=== PATIENT | female | born 2000 | race African-American/Black ===

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

== ENCOUNTER 2021-01-18 12:22 | Emergency (ER) | payer OTHER ==
[~2021-01-18] VITALS: Ht 185.4 cm; Wt 78.8 kg
[2021-01-18] MEDS ORDERED: HYDR-3363 PO (12:35)
[2021-01-18] MEDS ORDERED: NAPR-849 PO (12:35)
[2021-01-18 13:23] LABS: APPEARANCE, URINE CLEAR (CLEAR); BACTERIA, URINE AUTO NEGATIVE (NEGATIVE); BILIRUBIN, URINE AUTO NEGATIVE (NEGATIVE); BLOOD, URINE BLOOD NEGATIVE (NEGATIVE); COLOR, URINE YELLOW (YELLOW); GLUCOSE, URINE (UA) AUTO NEGATIVE (NEGATIVE); KETONE, URINE AUTO NEGATIVE (NEGATIVE); LEUKOCYTE ESTERASE, URINE AUTO NEGATIVE (NEGATIVE); NITRITE, URINE AUTO NEGATIVE (NEGATIVE); PROTEIN, URINE AUTO NEGATIVE (NEGATIVE); RBC, URINE AUTO 0 /HPF (0-3); SPECIFIC GRAVITY URINE AUTO 1.015 (1.002-1.035); SQUAMOUS EPITHELIAL CELL UR AU 0 /HPF (0-6); UROBILINOGEN, URINE AUTO 0.2 mg/dL (0.0-2.0); WBC, URINE AUTO 1 /HPF (0-3)
--- NOTE | 2021-01-18 13:29 | REP ---
INDICATION: R wrist pain s/p fall COMPARISON: None. TECHNIQUE: AP, lateral, bilateral oblique views right wrist. FINDINGS: The carpal bones, surrounding osseous structures, soft tissues, and joint spaces are normal. There is no evidence for acute fracture or dislocation. No subcutaneous emphysema or radiodense foreign body. IMPRESSION: No definite acute fracture or dislocation. If the patient remains symptomatic consider re-evaluation in 3-5 days including scaphoid view if necessary. <Electronically signed by Ruddy Novak > 01/18/21 [id number]
[2021-01-18 13:36] LABS: BASO # 0.1 10^3/uL (0.0-0.2); BASO % 1.3 % (0.0-1.0); EOS # 0.2 10^3/uL (0.0-0.5); EOS % 3.9 % (0.0-3.0); HEMATOCRIT 41.4 % (36.0-47.0); HEMOGLOBIN 13.5 g/dl (12.0-15.5); LYMPH # 2.3 10^3/uL (1.5-5.0); LYMPH % 37.2 % (24.0-44.0); MEAN CORPUSCULAR HEMOGLOBIN 24.3 pg (27.0-33.0); MEAN CORPUSCULAR HGB CONC 32.6 g/dl (32.0-36.5); MEAN CORPUSCULAR VOLUME 74.5 fl (80.0-96.0); MONO # 0.6 10^3/uL (0.0-0.8); MONO % 9.1 % (2.0-8.0); NEUTROPHILS % 48.3 % (36.0-66.0); PLATELET COUNT, AUTOMATED 433 10^3/uL (150-450); RED BLOOD COUNT 5.56 10^6/uL (4.00-5.40); WHITE BLOOD COUNT 6.1 10^3/uL (4.0-10.0)
[2021-01-18 14:17] LABS: BLOOD UREA NITROGEN 9 MG/DL (7-18); CALCIUM LEVEL 9.3 MG/DL (8.5-10.1); CARBON DIOXIDE LEVEL 29 MEQ/L (21-32); CHLORIDE LEVEL 106 MEQ/L (98-107); CK-MB VALUE MASS < 1.0 NG/ML (<3.6); CPK CREATINE PHOSPHOKINASE 224 U/L (26-192); CREATININE FOR GFR 0.78 MG/DL (0.55-1.30); GLUCOSE, FASTING 78 MG/DL (70-100); MB/CK RELATIVE INDEX 0.45 (< OR =4); POTASSIUM SERUM 5.2 MEQ/L (3.5-5.1); SODIUM LEVEL 138 MEQ/L (136-145); TROPONIN I < 0.02 NG/ML (< 0.10)
[2021-01-18 15:53] VITALS: BP 121/71
[2021-01-20 14:09] LABS: Lyme Disease IgG/IgM Antibodie <0.91 ISR (0.00-0.90); Lyme Disease IgM Ab Quantitati <0.80 index (0.00-0.79)
== END 2021-01-18 15:55 | disposition home or self-care (01) ==
LOC: M ED 12:22
DX: S63.8X1A Sprain of other part of right wrist and hand, initial encounter (principal); M54.5 Low back pain; M25.552 Pain in left hip; X58.XXXA Exposure to other specified factors, initial encounter; Y92.9 Unspecified place or not applicable; Y93.9 Activity, unspecified; Y99.9 Unspecified external cause status

== ENCOUNTER → 2021-06-11 | Outpatient (REF) ==
[~2021-06-11] MED LIST changes: +HYDR-3363 PO; -ISOVUE-300 61% 50ML VIAL As Ordered ONE; +NAPR-849 PO; -PROHANCE 279.3MG/ML 5ML VIAL As Ordered ONE
--- NOTE | 2021-06-11 12:05 | REP ---
INDICATION: SOB,BACK PAIN. COMPARISON: None. FINDINGS: The superior mediastinal structures are midline. The cardiac silhouette is unremarkable in size, shape, and position. The diaphragmatic surfaces of the lungs are regular, and the costophrenic angles are clear. The pulmonary barber are clear. The imaged osseous structures are intact. IMPRESSION: There is no acute cardiopulmonary disease. <Electronically signed by Edd Duran > 06/11/21 [id number]
--- NOTE | 2021-06-11 12:16 | REP ---
INDICATION: SOB,BACK PAIN. COMPARISON: None TECHNIQUE: Three views FINDINGS: AP and lateral views shows vertebral body height and alignment to be within normal limits. The disc spaces are symmetric and well maintained throughout. The pedicles are intact bilaterally. IMPRESSION: Within normal limits <Electronically signed by Edd Duran > 06/11/21 [id number]
== END ==
LOC: M PLALAB 11:05 → M PLAIMG 11:05
PROVIDERS: ATTEND Internal Medicine
DX: R06.02 Shortness of breath (principal); M54.9 Dorsalgia, unspecified

== ENCOUNTER → 2021-07-02 | Outpatient (CLI) | payer OTHER ==
--- NOTE | 2021-07-02 14:16 | REP ---
INDICATION: PAIN S/P FALL COMPARISON: None. TECHNIQUE: AP, lateral, bilateral oblique views right hand. FINDINGS: The osseous structures and joint spaces are intact and normal. There is no evidence for acute fracture or dislocation. Surrounding soft tissues are unremarkable. No subcutaneous emphysema or radiodense foreign body. IMPRESSION: . No acute fracture or dislocation. <Electronically signed by Ruddy Novak > 07/02/21 [id number]
--- NOTE | 2021-07-02 14:19 | REP ---
INDICATION: PAIN S/P FALL COMPARISON: None. TECHNIQUE: AP, lateral, bilateral oblique views right wrist. FINDINGS: The carpal bones, surrounding osseous structures, soft tissues, and joint spaces are normal. There is no evidence for acute fracture or dislocation. No subcutaneous emphysema or radiodense foreign body. IMPRESSION: Normal wrist series. No acute fracture or dislocation. <Electronically signed by Ruddy Novak > 07/02/21 [id number]
== END ==
LOC: M RAD 13:44
PROVIDERS: ATTEND Orthopaedic Surgery
DX: M25.531 Pain in right wrist (principal); M79.641 Pain in right hand

== ENCOUNTER 2021-07-05 15:57 | Inpatient (IN) | payer OTHER ==
[~2021-07-05] VITALS: Ht 188 cm; Wt 70.7 kg
[2021-07-05] MEDS ORDERED: AMIT10TA7 PO (16:23)
[2021-07-05] MEDS ORDERED: PSEU30TA88 PO (16:23)
[2021-07-05] MEDS ORDERED: ONDA8TAB8 PO (16:23)
[2021-07-05] MEDS ORDERED: PARO5TAB PO (16:23)
[2021-07-05] MEDS ORDERED: MELO15TA28 PO (16:23)
[2021-07-05] MEDS ORDERED: TIZA4CAP6 PO (16:23)
[2021-07-05] MEDS ORDERED: D3 +TAB PO (16:23)
[2021-07-05] MEDS ORDERED: LORA-674 PO (16:23)
[2021-07-05] MEDS ORDERED: GABA-283 PO (16:23)
[2021-07-05] MEDS ORDERED: AFRI0.058 (16:23)
[2021-07-05] MEDS ORDERED: NS 1,000 ML IV ONE (16:25)
[2021-07-05 16:32] LABS: BASO # 0.1 10^3/uL (0.0-0.2); BASO % 1.2 % (0.0-1.0); EOS # 0.1 10^3/uL (0.0-0.5); EOS % 1.3 % (0.0-3.0); HEMATOCRIT 37.7 % (36.0-47.0); LYMPH # 2.4 10^3/uL (1.5-5.0); LYMPH % 35.4 % (24.0-44.0); MEAN CORPUSCULAR HEMOGLOBIN 24.4 pg (27.0-33.0); MEAN CORPUSCULAR HGB CONC 34.5 g/dl (32.0-36.5); MEAN CORPUSCULAR VOLUME 70.9 fl (80.0-96.0); MONO # 0.6 10^3/uL (0.0-0.8); MONO % 8.3 % (2.0-8.0); NEUTROPHILS # 3.6 10^3/uL (1.5-8.5); NEUTROPHILS % 53.5 % (36.0-66.0); PLATELET COUNT, AUTOMATED 314 10^3/uL (150-450); RED BLOOD COUNT 5.32 10^6/uL (4.00-5.40); WHITE BLOOD COUNT 6.8 10^3/uL (4.0-10.0)
[2021-07-05 16:54] LABS: HCG, SERUM QUALITATIVE NEGATIVE (NEGATIVE)
[2021-07-05 17:04] LABS: ALT/SGPT 16 U/L (12-78); BLOOD UREA NITROGEN 10 MG/DL (7-18); CALCIUM LEVEL 9.5 MG/DL (8.5-10.1); CARBON DIOXIDE LEVEL 26 MEQ/L (21-32); CHLORIDE LEVEL 107 MEQ/L (98-107); CPK CREATINE PHOSPHOKINASE 84 U/L (26-192); CREATININE FOR GFR 0.85 MG/DL (0.55-1.30); GLUCOSE, FASTING 95 MG/DL (70-100); POTASSIUM SERUM 3.4 MEQ/L (3.5-5.1); SODIUM LEVEL 138 MEQ/L (136-145)
[2021-07-05 17:05] LABS: ACETAMINOPHEN LEVEL < 2.0 UG/ML (10.0-30.0); ALBUMIN 3.8 GM/DL (3.2-5.2); BILIRUBIN,DIRECT 0.1 MG/DL (0.0-0.2); BILIRUBIN,TOTAL 0.4 MG/DL (0.2-1.0); ETHYL ALCOHOL (ETHANOL) < 0.003 % (0.000-0.010); SALICYLATE LEVEL < 1.7 MG/DL (5.0-30.0); TOTAL PROTEIN 7.4 GM/DL (6.4-8.2)
[2021-07-05 17:59] LABS: AMPHETAMINES LEVEL URINE NEGATIVE (NEGATIVE); BARBITURATES URINE NEGATIVE (NEGATIVE); BENZODIAZEPINES URINE NEGATIVE (NEGATIVE); CANNABINOIDS URINE NEGATIVE (NEGATIVE); COCAINE METABOLITE URINE NEGATIVE (NEGATIVE); METHADONE URINE NEGATIVE (NEGATIVE); OPIATES URINE NEGATIVE (NEGATIVE); PHENCYCLIDINE URINE NEGATIVE (NEGATIVE)
--- NOTE | 2021-07-05 17:59 | REP ---
INDICATION: Drug Overdose COMPARISON: 06/11/2021 TECHNIQUE: Portable AP view of the chest FINDINGS: The mediastinum and cardiac silhouette are stable and within normal limits for portable technique. The lung barber are clear without acute consolidation, effusion, or pneumothorax. Skeletal structures are intact. IMPRESSION: No acute cardiopulmonary process appreciated. <Electronically signed by Ruddy Novak > 07/05/21 [id number]
[2021-07-05] MEDS ORDERED: KCL 10MEQ/100ML SWI (KRUN) 10 MEQ in IV 1 EA IV ONE ×2 (18:35→20:00)
--- NOTE | 2021-07-05 19:29 | ECGEPIP ---
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
--- NOTE | 2021-07-05 19:30 | ECGEPIP ---
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
[2021-07-05] MEDS ORDERED: med rec comment (19:53)
[2021-07-05] MEDS ORDERED: HOME MED LIST COMPLETE! XX SCH (19:55)
[2021-07-05 21:00] LABS: RSV AMPLIFICATION NEGATIVE (NEGATIVE)
[2021-07-06] MEDS ORDERED: ACETAMINOPHEN TAB 650MG DOSE (2X325MG) PO PRN (14:40)
[2021-07-06] MEDS ORDERED: MOM 30ML SUSPENSION UDC PO PRN (14:40)
[2021-07-06] MEDS ORDERED: MAALOX 30 ML SUSP *UDC PO PRN (14:40)
[2021-07-06 15:58] VITALS: BP 119/72
[2021-07-07 05:50] VITALS: BP 100/52
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
[2021-07-07] MEDS: DULoxetine 20 MG CAP (CYMBALTA) PO SCH ×2 (08:55→20:46)
[2021-07-07] MEDS: CYCLOBENZAPRINE 10MG TABLET PO SCH ×2 (14:01→20:47)
--- NOTE | 2021-07-07 15:39 | ECGEPIP ---
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
--- NOTE | 2021-07-07 17:23 | HPEPDOC ---
[facility] Medical History & Physical Date of Admission Jul 07, 2021 Date of Service: Jul 07, 2021 History and Physical CHIEF COMPLAINT: "They thought I took too many of my pills" HISTORY OF PRESENT ILLNESS: 21-year-old female with a past medical history of left hip fractures (using cane), sciatica, ?TBI, depression, and anxiety presented following overdose on amitriptyline. She was seen and examined in [facility]. Presently, she denies overdosing on amitriptyline, and was asking to be discharged. However, previous documentation reports that she may have overdosed. At this time, denies headaches, chest pain, palpitation, shortness of breath, abdominal pain, nausea, vomiting, problems urination or bowel movements. 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 She reports ever since then her body has not fully recovered and she is over the quality deteriorated. She was also recently told that she has degenerative disc disease, and bilateral sciatica. She also has a torn ligament of the right distal forearm that is currently being taken care of as an outpatient. She reports at this time her pain is manageable. At this junction, she expressed no further medical concerns. PAST MEDICAL HISTORY: As mentioned above. PAST SURGICAL HISTORY: She denied any surgical history. SOCIAL H[place] FAMILY HISTORY: Non-contributory ALLERGIES: Please see below. REVIEW OF SYSTEMS: 10 point review of system was negative except for what is noted in the HPI HOME MEDICATIONS: Please see below. PHYSICAL EXAMINATION: General: Lying in bed, no acute distress Head/Neck/Throat: Trachea midline, mucous membranes moist Eyes: Sclera anicteric, no erythema or discharge appreciated bilateral Thorax: Normal respiratory effort on room air, lungs clear to auscultation bilaterally, no wheezes/rales/rhonchi Cardiovascular: Normal rate, regular rhythm, normal S1, S2; no S3, S4, rubs/gallops/murmurs Abdomen: Bowel sounds present, soft/nontender/nondistended Genitourinary: No CVA tenderness, no Hutchison in place Musculoskeletal: Antalgic gait, uses a cane for ambulation. Reports chronic pain over her paraspinal region. Right forearm with splinter cast. Skin: Warm, dry Neurologic: AAOx3, speech fluent and goal-directed, no focal deficits, grossly intact LABORATORY DATA: See below. IMAGING: CXR results reviewed. MICROBIOLOGY: Please see below. ASSESSMENT/PLAN Depression/Anxiety -Presented with possible overdose with amitriptyline. -Management as per psychiatry team. Chronic pain from previous hip fracture, degenerative joint disease, sciatica -Continue with cyclobenzaprine. Duloxetine will help with her pain as well. Hypokalemia -noted this was repleted. She should have repeat lab work done with her pcp DVT -Encourage ambulation Medicine team will sign off at this time. Please reconsult if needed. Thank you for involving us in the care of Ms. Ocampo. Please note entire history and physical was taken in the presence of a female vault keeper. Vital Signs Vital Signs Date Time Temp Pulse Resp B/P (MAP) Pulse Ox O2 Delivery O2 Flow Rate FiO2 07/07/21 05:50 97.9 83 16 100/52 (68) 98 Room Air Home Medications Scheduled Cholecalciferol (Vitd3)/Vit K2 (D3 + K2 Dots 1,000 Units Tab) 1 Each Tab.rapdis, 1 TAB PO DAILY Duloxetine HCl (Cymbalta) 20 Mg Capsule.dr, 20 MG PO BID for depression Hydroxyzine HCl (Hydroxyzine HCl) 25 Mg Tablet, 25 MG PO BID for anxiety Loratadine (Loratadine) 10 Mg Tablet, 10 MG PO DAILY Meloxicam (Meloxicam) 15 Mg Tablet, 15 MG PO DAILY Oxymetazoline HCl (Afrin) 15 Ml [place], 2 SPRAY NA ASDIRECTED Scheduled PRN Gabapentin (Gabapentin) 400 Mg Capsule, 100 MG PO PRN PRN for INSOMNIA Naproxen (Naproxen) 250 Mg Tablet, 250 MG PO BID PRN for pain Ondansetron (Ondansetron Odt) 8 Mg Tab.rapdis, 8 MG PO PRN PRN for NAUSEA Pseudoephedrine HCl (Pseudoephedrine HCl) 30 Mg Tablet, 30 MG PO Q6HP PRN for NASAL CONGESTION Tizanidine HCl (Tizanidine HCl) 4 Mg Capsule, 4 MG PO PRN PRN for MUSCLE SPASMS Trazodone HCl (Trazodone HCl) 50 Mg Tablet, 50 MG PO QHSP PRN for INSOMNIA Allergies Coded Allergies: latex (Unverified Allergy, Unknown, 07/06/21) reaction to kiwis A-FIB/CHADSVASC A-FIB History Current/History of A-Fib/PAF?: No Age/Risk Factor Scoring CHADSVASC: CHADSVASC Response (Comments) Value Age Risk Factor Age < 65 years old 0 Gender Risk Factor Female 1 Hx of CHF No 0 Hx of HTN No 0 Hx of Stroke/TIA/or VTE No 0 Hx of Diabetes No 0 Hx of Vascular Disease No 0 Total 1 GRICELDA MCFADDEN M.D. Jul 07, 2021 16:58
[2021-07-07 18:54] VITALS: BP 121/77
[2021-07-07] MEDS: traZODone 50 MG TAB PO PRN (20:47)
[2021-07-08 06:04] VITALS: BP 91/54
[2021-07-08] MEDS: CYCLOBENZAPRINE 10MG TABLET PO SCH ×3 (06:04→21:31)
[2021-07-08] MEDS: DULoxetine 20 MG CAP (CYMBALTA) PO SCH ×2 (09:45→21:31)
--- NOTE | 2021-07-08 14:04 | MHIPNPDOC ---
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 Was medically cleared. Toxicology screen negative. "I took 50 to 60 mg of amitriptyline", per PSA note 6 pills and finishing bottle amitriptyline (10 mg), patient reports medication was discontinued, but "was taking old pills". "I take it in the daytime to go to sleep". States she is in the process of being medically discharged, due to injuries, L hip fracture during training (dx Sep 2019), reports pain got worse and worse, reports being deployed in April 2020 to [place], was medically evacuated due to knee pain. Reports recently having back xray, with early DDD dx, with sciatica bilaterally. Reports tingling and numbness in leg 24-7. Also reports tearing ligaments in R arm. Interval: States she is"pretty okay" reports mood is an 8 out of 10, but continues to appear constricted and somewhat withdrawn, we discussed perhaps triggers of her appearing this way as she states that also people [place] know her to be this way as per usual. We also discussed how she shuts down in context of her PTSD symptoms, sometimes isolating and should keep the other people away. We discussed how it would be healthier to seek supports during times when she feels she needs to isolate as a coping strategy and to maintain safety. She denies suicidal ideation, intent or plan. Sleep is okay at "8 hoursish", appetite is normal. Reviewed medications, she has been compliant with her duloxetine, as needed cyclobenzaprine and also reports that these medications have reduced some of her pain symptoms at night helping with her sleep. She is agreeable to continue with medications, and denies any side effects. She denies any acute physical complaints, continues to have the chronic left hip pain. VITAL SIGNS: See below. NEW TEST RESULTS: None CURRENT MEDICATIONS: See below. MENTAL STATUS EXAMINATION: Patient is a 21-year old -English female, who is in no acute distress, appears somewhat older than her stated age tall, use of cane, improved eye contact Speech: Is somewhat slowed, spontaneous, decreased volume. Language skills are normal. Thought processes including: Linear logical. Thought content: Denies suicidal ideation, intent or plan. Abstract reasoning, and computation: Intact. Description of associations: Normal. Description of abnormal or psychotic thoughts: Denies. Judgment: Improving. Insight: Good. Orientation: X4. Recent and remote memory: Intact. Attention span and concentration: Fair. Language: Argentine. Fund of knowledge: Average. Mood:"Pretty ok". Affect: Mildly constricted, mildly anxious, mildly guarded, mood congruent, appropriate DIAGNOSES: 1. Post traumatic stress disorder, with panic attacks 2. Major depressive disorder, recurrent, moderate ASSESSMENT: [place] reports some improvement in depressive symptoms, shows future orientation with wanting to work on her PTSD symptoms with therapy upon discussion, has been denying suicidal ideation in context of improved sleep with medications to help with pain and mood. She has been tolerating the duloxetine without side effects. MANAGEMENT PLAN: Continue duloxetine 20 mg twice daily. Continue as needed cyclobenzaprine for pain. Continue trazodone as needed for sleep, patient endorses also contributed to improved sleep overnight. Continued coordination with social work, [facility], per collateral from coordination of care with social work they confirmed they would do a clean sweep of her room for any weapons work pill collections to ensure safety. Patient education given for PTSD treatments long- term including graduated exposure therapy, need for compliance with medications, healthier coping strategies as opposed to isolating and avoiding. TIME SPENT: 35 minutes, including coordination of care Vital Signs Vital Signs Date Time Temp Pulse Resp B/P (MAP) Pulse Ox O2 Delivery O2 Flow Rate FiO2 07/08/21 06:04 98.8 77 16 91/54 (66) 100 Room Air Current Medications Current Medications Medications (Trade) Dose Ordered Sig/Lefty Route PRN Reason Start Time Stop Time Status Last Admin Dose Admin Acetaminophen (Tylenol Tab) 650 mg Q6HP PRN PO HEADACHE or MILD DISCOMFORT 07/06/21 14:40 Al Hydrox/Mg Hydrox/Simethicone (Mylanta) 30 ml Q4HP PRN PO HEARTBURN/INDIGESTION 07/06/21 14:40 Cyclobenzaprine HCl (Flexeril) 10 mg Q8H PO 07/07/21 14:00 07/08/21 13:16 Duloxetine HCl (Cymbalta) 20 mg BID PO 07/07/21 09:00 07/08/21 09:45 Home Med (Home Med List Complete!) ASDIRECTED XX 07/05/21 19:55 07/05/21 20:03 DC Magnesium Hydroxide (Milk Of Magnesia) 30 ml DAILYPRN PRN PO CONSTIPATION 07/06/21 14:40 Trazodone HCl (Desyrel) 50 mg QHSP PRN PO INSOMNIA 07/06/21 14:40 07/07/21 20:47 Allergies Coded Allergies: latex (Unverified Allergy, Unknown, 07/06/21) reaction to ROBBIE Bello MD Jul 08, 2021 14:04
[2021-07-08] MEDS ORDERED: TRAZ-252 PO (14:13)
[2021-07-08] MEDS ORDERED: CYMB1CAP4 PO ×2 (14:13→14:21)
[2021-07-08 16:05] VITALS: BP 110/54
[2021-07-08] MEDS: traZODone 50 MG TAB PO PRN (21:31)
[2021-07-09] MEDS: CYCLOBENZAPRINE 10MG TABLET PO SCH (05:39)
[2021-07-09 06:33] VITALS: BP 115/57
[2021-07-09] MEDS: DULoxetine 20 MG CAP (CYMBALTA) PO SCH (09:51)
[2021-07-09] MEDS ORDERED: CYMB1CAP4 PO (10:18)
[2021-07-09] MEDS ORDERED: TRAZ-252 PO (10:19)
[2021-07-09] MEDS ORDERED: D3 +TAB PO (10:20)
[2021-07-09] MEDS ORDERED: GABA-283 PO (10:26)
[2021-07-09] MEDS ORDERED: MELO15TA28 PO (10:26)
[2021-07-09] MEDS ORDERED: AFRI0.058 (10:26)
[2021-07-09] MEDS ORDERED: LORA-674 PO (10:26)
[2021-07-09] MEDS ORDERED: PSEU30TA88 PO (10:26)
[2021-07-09] MEDS ORDERED: TIZA4CAP6 PO (10:26)
--- NOTE | 2021-07-09 11:58 | MHDSPDOC ---
[facility] Discharge Summary Discharge Summary DATE OF ADMISSION: Jul 06, 2021 at 15:49 DATE OF DISCHARGE: Jul 09, 2021 at 11:35 DISCHARGE DIAGNOSES: 1. Post traumatic stress disorder, with panic attacks 2. Major depressive disorder, recurrent, moderate 3. 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 Was medically cleared. Toxicology screen negative. "I took 50 to 60 mg of amitriptyline", per PSA note 6 pills and finishing bottle amitriptyline (10 mg), patient reports medication was discontinued, but "was taking old pills". "I take it in the daytime to go to sleep". States she is in the process of being medically discharged, due to injuries, L hip fracture during training (dx Sep 2019), reports pain got worse and worse, reports being deployed in April 2020 to [place], was medically evacuated due to knee pain. Reports recently having back xray, with early DDD dx, with sciatica bilaterally. Reports tingling and numbness in leg 24-7. Also reports tearing ligaments in R arm. CONSULTANTS INVOLVED: See medical H&P by hospitalist TREATMENT AND PROGRESS ON THE UNIT : Patient was admitted to the treatment [facility] legal status and was afforded the following treatment allergies: 1. Individual therapy 2. Group therapy 3. Medication management 4. Milia therapy 5. Safe environment HOSPITAL COURSE: Patient was admitted to the [facility] to [facility] legal status. 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 States she has trouble opening up about these memories and feelings and was encouraged to do so with therapist after acute stabilization on the unit. Also reported pain interfering with sleep. Was restarted on home muscle relaxant for sleep and duloxetine 20 mg tw ice daily for neuropathic pain and symptomatic mood control. Reported her sleep significantly improved despite being on the inpatient unit with multiple interruptions during the night, as pain was better controlled, was able to have her cane for ambulation and wrist brace on the right arm. During course of stay denied suicidal ideations with intent or plan. Denies medication side effects and reports they are well-tolerated. Was noted to have improved sleep and energy. Reports being introverted and closing people away due to her past PTSD symptoms as a form of protecting herself, was encouraged to share this with therapist, education about exposure therapy was provided to patient, as she is made aware of the primary treatment for PTSD is therapy along with medications. Patient also made aware that if mood does not improve her duloxetine should be increased to a maintenance dose at least 30 mg twice daily. Prior to discharge she states she looks forward to returning and possibly discharging from the [employer] , is more future oriented and engaged on interviews. Denies having any suicidal ideation, intent, plan. DISCHARGE ASSESSMENT: On today's interview patient is alert and oriented, dressed in hospital clothing with good grooming. Affect is less constricted and denies depression or anxiety symptoms. Denies suicidal and homicidal ideation, planning or intent. Denies and is not observed to have any symptoms of ximena or psychosis including delusions, obsessions, bizarre thinking, ruminations, paranoia, flight of ideas, illogical thoughts, hallucinations or having poor insight and judgment. Patient has normal mentation and declines further hospitalization on voluntary status and meets criteria for discharge today. Patient is encouraged to return to the hospital symptoms worsen or change and encouraged to call the unit if she needs to speak with a provider for questions regarding medications or care. MENTAL STATUS EXAMINATION ON DISCHARGE: Patient is a 21-year old -Cuban female, who is in no acute distress, appears somewhat older than her stated age, tall, use of cane and wrist brace on right arm, improved eye contact Speech: Is somewhat slowed, spontaneous, decreased volume. Language skills are normal. Thought processes including: Linear logical. Thought content: Denies suicidal ideation, intent or plan. Abstract reasoning, and computation: Intact. Description of associations: Normal. Description of abnormal or psychotic thoughts: Denies. Judgment: Improving. Insight: Good. Orientation: X4. Recent and remote memory: Intact. Attention span and concentration: Fair. Language: Occitan. Fund of knowledge: Average. Mood:"good". Affect: Bored, euthymic, less anxious, less guarded, mood congruent, appropriate MEDICATIONS ON DISCHARGE: See medication reconciliation CSSRS: Wish to be : No Nonspecific active suicidal thoughts: No Lifetime attempts: 0 interrupted attempts: 0 aborted attempts: 0 preparatory axillar behavior: None Take into consideration safety state, status, modifiable nonmodifiable risk factors patient is at low risk for suicide on discharge according to [place] suicide. Was also ensured with the help coordination of social work that access medications/pill collections were removed from the apartment. No access to weapons in private residence. PLAN/FOLLOWUP ARRANGEMENTS: Follow Up Care Education Label * Mental Health Appt 1 * Additional information BEHAVIORAL HEALTH CL/DRUM1 [place] [id number]@1300 FTR/60 [facility]ENDING [facility] CL/DRUM1 [place] [id number]@0800 FTR/60 PENDING [facility]IOR[facility] CL/DRUM1 [place] [id number]@0800 FTR/60 PENDING BE[facility]IOR[facility] CL/DRUM1 [place] [id number]@1400 FTR/60 PENDING BEH[facility]IOR[facility] CL/DRUM1 [place] [id number]@1400 FTR/60 PENDING BEHAVIORAL HEALTH CL/DRUM1 [place] [id number]@0900 FTR/60 PENDING BEHAVIORAL HEALBEHAVIORAL HEALTH CL/DRUM1 ALEXANDRASTANLEY [id number]@0900 SPEC/90 PENDING BEHAVIORAL HEALTH CL/DRUM1 [place] [id number]@1400 FTR/60 PENDING BEHAVIORAL HEALTH CL/DRUM1 [place] [id number]@1400 FTR/60 PENDING Follow Up Care Education Label * Medical * Medical Follow Up [facility] * Established With This Provider Yes * Therapist MISS MONTIEL * Date Jul 14, 2021 * Time 11:00 * Address of Clinic or Practice [facility]/ [address] * The amount of time spent in the coordination of care for this patient was approximately 25 minutes. ETOH/Disorder Med Rx ETOH/DRUG DISORDER RX: N/A Vital Signs/I&Os Vital Signs Date Time Temp Pulse Resp B/P (MAP) Pulse Ox O2 Delivery O2 Flow Rate FiO2 07/09/21 06:33 99.7 97 20 115/57 (76) 99 Room Air Medications Scheduled Cholecalciferol (Vitd3)/Vit K2 (D3 + K2 Dots 1,000 Units Tab) 1 Each Tab.rapdis, 1 TAB PO DAILY for vitamin, #7 Duloxetine HCl (Cymbalta) 20 Mg Capsule.dr, 20 MG PO BID for depression , #14 Hydroxyzine HCl (Hydroxyzine HCl) 25 Mg Tablet, 25 MG PO BID for anxiety, (Reported) Loratadine (Loratadine) 10 Mg Tablet, 10 MG PO DAILY for allergy, #7 Meloxicam (Meloxicam) 15 Mg Tablet, 15 MG PO DAILY for pain, #7 Oxymetazoline HCl (Afrin) 15 Ml [place], 2 SPRAY NA ASDIRECTED for allergy, #1 Scheduled PRN Gabapentin (Gabapentin) 400 Mg Capsule, 100 MG PO PRN PRN for INSOMNIA, #14 Naproxen (Naproxen) 250 Mg Tablet, 250 MG PO BID PRN for pain, (Reported) Ondansetron (Ondansetron Odt) 8 Mg Tab.rapdis, 8 MG PO PRN PRN for NAUSEA, (Reported) Pseudoephedrine HCl (Pseudoephedrine HCl) 30 Mg Tablet, 30 MG PO Q6HP PRN for NASAL CONGESTION, #7 Tizanidine HCl (Tizanidine HCl) 4 Mg Capsule, 4 MG PO PRN PRN for MUSCLE SPASMS, #14 Trazodone HCl (Trazodone HCl) 50 Mg Tablet, 50 MG PO QHSP PRN for INSOMNIA for 7 Days, #7 Allergies Coded Allergies: latex (Unverified Allergy, Unknown, 07/06/21) reaction to ROBBIE Bello MD Jul 09, 2021 11:58
== END 2021-07-09 11:35 | disposition home or self-care (01) | DRG 885 ==
LOC: M ED 15:57 → EDBEDREQSVC 07-06 13:50 → M PSY 07-06 15:49
PROVIDERS: ADMIT Student in an Organized Health Care Education/Training Program; ATTEND Student in an Organized Health Care Education/Training Program
DX: F33.1 Major depressive disorder, recurrent, moderate (principal); F41.0 Panic disorder [episodic paroxysmal anxiety]; F43.10 Post-traumatic stress disorder, unspecified; M51.36 Other intervertebral disc degeneration, lumbar region; M54.41 Lumbago with sciatica, right side; M54.42 Lumbago with sciatica, left side; Z79.899 Other long term (current) drug therapy; Z20.822 Contact with and (suspected) exposure to COVID-19; Z91.040 Latex allergy status; Z91.018 Allergy to other foods; E87.6 Hypokalemia; M25.552 Pain in left hip

== ENCOUNTER 2021-07-19 11:06 | Inpatient (IN) | payer OTHER ==
[~2021-07-19] VITALS: Ht 188 cm; Wt 71.3 kg
[~2021-07-19 11:06] MED LIST changes: +AFRI0.058; +AMIT10TA7 PO; +CYMB1CAP4 PO; +D3 +TAB PO; +GABA-283 PO; +LORA-674 PO; +MELO15TA28 PO; +ONDA8TAB8 PO; +PARO5TAB PO; +PSEU30TA88 PO; +TIZA4CAP6 PO; +TRAZ-252 PO; +med rec comment
[2021-07-19 11:29] LABS: HEMATOCRIT 39.9 % (36.0-47.0); HEMOGLOBIN 13.5 g/dl (12.0-15.5); MEAN CORPUSCULAR HEMOGLOBIN 24.6 pg (27.0-33.0); MEAN CORPUSCULAR HGB CONC 33.8 g/dl (32.0-36.5); MEAN CORPUSCULAR VOLUME 72.7 fl (80.0-96.0); PLATELET COUNT, AUTOMATED 434 10^3/uL (150-450); RED BLOOD COUNT 5.49 10^6/uL (4.00-5.40)
[2021-07-19] MEDS: NS 1,000 ML IV SCH ×2 (11:35→18:02)
[2021-07-19 11:54] LABS: HCG, SERUM QUALITATIVE NEGATIVE (NEGATIVE)
[2021-07-19 12:06] LABS: RSV AMPLIFICATION NEGATIVE (NEGATIVE)
[2021-07-19 12:09] LABS: ALT/SGPT 19 U/L (12-78); BILIRUBIN,DIRECT < 0.1 MG/DL (0.0-0.2); BILIRUBIN,TOTAL 0.5 MG/DL (0.2-1.0); BLOOD UREA NITROGEN 10 MG/DL (7-18); CALCIUM LEVEL 9.7 MG/DL (8.5-10.1); CARBON DIOXIDE LEVEL 23 MEQ/L (21-32); CHLORIDE LEVEL 109 MEQ/L (98-107); ETHYL ALCOHOL (ETHANOL) < 0.003 % (0.000-0.010); GLUCOSE, FASTING 76 MG/DL (70-100); POTASSIUM SERUM 4.5 MEQ/L (3.5-5.1); SODIUM LEVEL 139 MEQ/L (136-145); TOTAL PROTEIN 7.9 GM/DL (6.4-8.2)
[2021-07-19 12:10] LABS: ACETAMINOPHEN LEVEL < 2.0 UG/ML (10.0-30.0); SALICYLATE LEVEL < 1.7 MG/DL (5.0-30.0)
[2021-07-19 14:31] LABS: AMPHETAMINES LEVEL URINE NEGATIVE (NEGATIVE); BARBITURATES URINE NEGATIVE (NEGATIVE); BENZODIAZEPINES URINE NEGATIVE (NEGATIVE); CANNABINOIDS URINE NEGATIVE (NEGATIVE); COCAINE METABOLITE URINE NEGATIVE (NEGATIVE); METHADONE URINE NEGATIVE (NEGATIVE); OPIATES URINE NEGATIVE (NEGATIVE); PHENCYCLIDINE URINE NEGATIVE (NEGATIVE)
[2021-07-19] MEDS ORDERED: ACETAMINOPHEN TAB 650MG DOSE (2X325MG) PO ONE (16:05)
[2021-07-19] MEDS ORDERED: LORA-674 PO (17:11)
[2021-07-19] MEDS ORDERED: PSEU30TA88 PO (17:11)
[2021-07-19] MEDS ORDERED: DULO20CA27 PO (17:11)
[2021-07-19] MEDS ORDERED: TRAZ-252 PO (17:11)
[2021-07-19] MEDS ORDERED: AFRI0.058 NARES (17:11)
[2021-07-19] MEDS ORDERED: TIZA4CAP PO (17:11)
[2021-07-19] MEDS ORDERED: MELO15TA28 PO (17:11)
[2021-07-19] MEDS ORDERED: GABA-1171 PO (17:11)
[2021-07-19] MEDS ORDERED: D31000TA2 PO (17:11)
[2021-07-19] MEDS ORDERED: COMMENTS (17:12)
[2021-07-19] MEDS ORDERED: HOME MED LIST COMPLETE! XX SCH (17:15)
[2021-07-19] MEDS ORDERED: MOM 30ML SUSPENSION UDC PO PRN (18:05)
[2021-07-19] MEDS ORDERED: OXYMETAZOLINE 0.05% NASAL SPRAY (AFRIN) PRN (18:05)
[2021-07-19] MEDS ORDERED: MAALOX 30 ML SUSP *UDC PO PRN (18:05)
[2021-07-19] MEDS ORDERED: tiZANidine 4 MG TAB PO PRN (18:05)
[2021-07-19] MEDS ORDERED: hydrOXYzine 25 MG TAB PO PRN (18:05)
[2021-07-19 20:05] VITALS: BP 128/92
--- NOTE | 2021-07-19 20:12 | ECGEPIP ---
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
[2021-07-19] MEDS: DULoxetine 20 MG CAP (CYMBALTA) PO SCH (21:28)
[2021-07-19] MEDS: GABAPENTIN 100 MG CAP PO SCH (21:28)
[2021-07-19] MEDS: LORATADINE 10 MG TAB PO SCH (21:28)
[2021-07-20] MEDS: VITAMIN D 1,000 INTERNATIONAL UNITS TABLET PO SCH (09:00)
[2021-07-20] MEDS: MELOXICAM (MOBIC) 7.5 MG TAB PO SCH (09:00)
[2021-07-20] MEDS: DULoxetine 20 MG CAP (CYMBALTA) PO SCH ×2 (09:00→20:10)
[2021-07-20] MEDS: ACETAMINOPHEN TAB 650MG DOSE (2X325MG) PO PRN (10:47)
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
[2021-07-20 16:23] VITALS: BP 125/60
--- NOTE | 2021-07-20 16:26 | HPEPDOC ---
General Date of Admission Jul 19, 2021 at 18:04 Date of Service: Jul 20, 2021 Chief Complaint The patient is a 21-year-old female admitted with a reason for visit of Atypical Depression. Source: Patient History of Present Illness Patient is 21 years old female with past medical history of depression presented to hospital with suicidal thoughts. Patient stated that she broke up with her boyfriend. Pt states she took three 50mg trazadone and texted her SGT and then went back to bed. Also patient mentioned that she had recent hip fracture, and she use cane to walk. She reported that she has bulging disks and degenerative disks nerve damage in her left leg a hip fracture, knee difficulties torn ligaments. She states she has numerous broken ribs and that her ribs are "out of place". During my interview patient denied fever, chills, nausea, diarrhea, dysuria. Home Medications Scheduled Cholecalciferol (Vitamin D3) (Vitamin D3) 1,000 Unit Tablet, 1,000 UNITS PO DAILY, (Reported) Duloxetine HCl (Duloxetine HCl) 20 Mg Capsule.dr, 20 MG PO BID, (Reported) Gabapentin (Gabapentin) 100 Mg Capsule, 100 MG PO QHS, (Reported) Loratadine (Loratadine) 10 Mg Tablet, 10 MG PO QHS, (Reported) Meloxicam (Meloxicam) 15 Mg Tablet, 15 MG PO DAILY, (Reported) Scheduled PRN Hydroxyzine HCl (Hydroxyzine HCl) 25 Mg Tablet, 25 MG PO BID PRN for ANXIETY, (Reported) Oxymetazoline HCl (Afrin) 15 Ml [place], 2 SPRAY NARES DAILY PRN for CONGESTION, (Reported) Pseudoephedrine HCl (Pseudoephedrine HCl) 30 Mg Tablet, 30 MG PO Q6H PRN for CONGESTION, (Reported) Tizanidine HCl (Tizanidine HCl) 4 Mg Capsule, 4 MG PO TID PRN for MUSCLE SPASMS, (Reported) Trazodone HCl (Trazodone HCl) 50 Mg Tablet, 50 MG PO QHS PRN for SLEEP, (Reported) Miscellaneous Medications [Comments] , (Reported) NEED TO VERIFY WITH TORRES Allergies Coded Allergies: latex (Unverified Allergy, Unknown, 07/06/21) reaction to kiwis Past Medical History Medical History Depression Family History I personally reviewed family history and found not pertinent Social History * Smoker: Denies Alcohol: Denies Drugs: denies A-FIB/CHADSVASC A-FIB History Current/History of A-Fib/PAF?: No Current PO Anticoag Therapy: No Age/Risk Factor Scoring CHADSVASC: CHADSVASC Response (Comments) Value Age Risk Factor Age < 65 years old 0 Gender Risk Factor Female 1 Hx of CHF No 0 Hx of HTN No 0 Hx of Stroke/TIA/or VTE No 0 Hx of Diabetes No 0 Hx of Vascular Disease No 0 Total 1 Review of Systems Constitutional: Denies: Chills Eyes: Denies: Pain ENT: Denies: Head Aches Skin: Denies: Rash, Lesions Pulmonary: Denies: Dyspnea Cardiovascular: Denies: Chest Pain Gastrointestinal: Denies: Nausea, Vomiting Genitourinary: Denies: Dysuria Hematologic: Denies: Bruising Endocrine: Denies: Polydipsia Musculoskeletal: Denies: Neck Pain Neurological: Denies: Weakness Psych: Reports: Depression Physical Examination General Exam: Positive: Alert Eye Exam: Positive: PERRLA ENT Exam: Positive: Atraumatic Neck Exam: Positive: Supple; Negative: JVD Chest Exam: Positive: Clear to auscultation Heart Exam: Positive: Rate Normal Telemetry: Positive: No significant arrhythmia Abdomen Exam: Positive: Normal bowel sounds Extremity Exam: Negative: Clubbing Skin Exam: Positive: Nl turgor and temperature Neuro Exam: Positive: Cranial Nerves 3-12 NL Psych Exam: Positive: Oriented x 3 Vital Signs Vital Signs Date Time Temp Pulse Resp B/P (MAP) Pulse Ox O2 Delivery O2 Flow Rate FiO2 07/19/21 20:05 97.5 103 16 128/92 (104) 99 Room Air Assessment/Plan Patient is 21 years old female with past medical history of depression presented to hospital with suicidal thoughts. Patient stated that she broke up with her boyfriend. Pt states she took three 50mg trazadone and texted her SGT and then went back to bed. Also patient mentioned that she had recent hip fracture, and she use cane to walk. During my interview patient denied fever, chills, nausea, diarrhea, dysuria Problems (1) Depression with suicidal ideation Status: Acute Problem Text: Defer treatment to psych team (2) History of trauma Status: Chronic Problem Text: Follow-up with PCP in the outpatient settings Plan / VTE VTE Prophylaxis Ordered?: No VTE Exclusion Mechanical Proph: Low Risk for VTE ROXANNA TORRES DO Jul 20, 2021 16:26
[2021-07-20] MEDS: GABAPENTIN 100 MG CAP PO SCH (20:10)
[2021-07-20] MEDS: LORATADINE 10 MG TAB PO SCH (20:10)
[2021-07-20] MEDS ORDERED: OLANZapine 10 MG TAB PO SCH (21:00)
[2021-07-21] MEDS: VITAMIN D 1,000 INTERNATIONAL UNITS TABLET PO SCH (09:29)
[2021-07-21] MEDS: MELOXICAM (MOBIC) 7.5 MG TAB PO SCH (09:29)
[2021-07-21] MEDS: DULoxetine 20 MG CAP (CYMBALTA) PO SCH ×2 (09:29→21:01)
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
[2021-07-21 16:25] VITALS: BP 110/60
[2021-07-21] MEDS: OLANZapine 10 MG TAB PO SCH (21:01)
[2021-07-21] MEDS: ACETAMINOPHEN TAB 650MG DOSE (2X325MG) PO PRN (21:02)
[2021-07-21] MEDS: GABAPENTIN 100 MG CAP PO SCH (21:02)
[2021-07-21] MEDS: LORATADINE 10 MG TAB PO SCH (21:02)
[2021-07-21] MEDS: OLANZapine ORAL DISINTEGRATING TAB 5MG PO PRN (22:01)
[2021-07-22 07:06] VITALS: BP 91/52
[2021-07-22] MEDS: MELOXICAM (MOBIC) 7.5 MG TAB PO SCH (09:30)
[2021-07-22] MEDS: DULoxetine 20 MG CAP (CYMBALTA) PO SCH (09:30)
[2021-07-22] MEDS: VITAMIN D 1,000 INTERNATIONAL UNITS TABLET PO SCH (09:30)
--- NOTE | 2021-07-22 13:38 | MHIPNPDOC ---
[facility] Progress Note Progress Note DATE OF SERVICE: 07/22/21 HISTORY: Patient returns after recent admission July 06 to July 09 due to intentionally taking 3 pills of trazodone, reports had door broken down again and was irritable on admission, involuntarily 9.39. She is pending medical discharge from the but is frustrated by her isolation and loneliness as her partner is abroad in [place]. Continues to state that she wants to be discharged and does not need to be here. Interval: Denies suicidal ideation but is mostly uncooperative to interview. He is lying in bed and frustrated by readmission. Appears despondent and lying in bed with irritability. Reports her right upper extremity continues to be a so urce of frustration as she is pending treatment for torn tendons. Per social work patient does not engage in her outpatient appointments and it was reported she told her outpatient provider that was suicidal but lied and was discharged on previous admission. VITAL SIGNS: See below. NEW TEST RESULTS: None. CURRENT MEDICATIONS: See below. MENTAL STATUS EXAMINATION: Patient is a 21-year old -Qat[place] female, who is in no acute distress, tall wearing a headband lying in bed with crutches next to bed, poor eye contact. Speech: Is nonspontaneous, minimal. Language skills are intact. Thought processes including: Linear, logical. Thought content: Denies psychiatric symptoms Abstract reasoning, and computation: Intact. Description of associations: Intact. Description of abnormal or psychotic thoughts: Denies, but has some paranoia regarding against her. Judgment: Poor. Insight: Poor. Orientation: X3. Recent and remote memory: Intact. Attention span and concentration: Fair. Language: Frisian. Fund of knowledge: Average. Mood: Irritable. Affect: Irritable, dysthymic, withdrawn, mood congruent. DIAGNOSES: 1. Major depressive disorder with psychotic features versus adjustment disorder 2. Rule out malingering 3. Rule out borderline personality disorder, with psychotic episodes ASSESSMENT: Patient is withdrawn with poor eye contact lying in bed, poorly cooperative interview morning discharge, appears irritable, labile. Possibly minimizing pills taken poor insight into situation as she wants medical discha rge but is delaying this process psychiatric readmission. Further evaluation of psychotic symptoms should be made including paranoia. MANAGEMENT PLAN: Increase Cymbalta to 30 mg bid for depression, continue olanzapine 20 mg nightly. Has as needed olanzapine for agitation. Order lipid panel at a metabolic assessment in context olanzapine use. 07/19 fasting blood glucose was within normal limits. TIME SPENT: 30 minutes. Vital Signs Vital Signs Date Time Temp Pulse Resp B/P (MAP) Pulse Ox O2 Delivery O2 Flow Rate FiO2 07/22/21 07:06 98.4 76 20 91/52 (65) 96 Room Air Current Medications Current Medications Medications (Trade) Dose Ordered Sig/Lefty Route PRN Reason Start Time Stop Time Status Last Admin Dose Admin Acetaminophen (Tylenol Tab) 650 mg Q6HP PRN PO HEADACHE or MILD DISCOMFORT 07/19/21 18:05 07/21/21 21:02 Al Hydrox/Mg Hydrox/Simethicone (Mylanta) 30 ml Q4HP PRN PO HEARTBURN/INDIGESTION 07/19/21 18:05 Duloxetine HCl (Cymbalta) 20 mg BID PO 07/19/21 21:00 07/22/21 09:30 Gabapentin (Neurontin) 100 mg QHS PO 07/19/21 21:00 07/21/21 21:02 Home Med (Home Med List Complete!) ASDIRECTED XX 07/19/21 17:15 07/19/21 17:15 DC Hydroxyzine HCl (Atarax) 25 mg BID PRN PO ANXIETY 07/19/21 18:05 07/21/21 21:01 Loratadine (Claritin) 10 mg QHS PO 07/19/21 21:00 07/21/21 21:02 Magnesium Hydroxide (Milk Of Magnesia) 30 ml DAILYPRN PRN PO CONSTIPATION 07/19/21 18:05 Meloxicam (Mobic) 15 mg DAILY PO 07/20/21 09:00 07/22/21 09:30 Olanzapine (ZyPREXA ZYDIS) 5 mg Q4HP PRN PO AGITATION 07/21/21 21:55 07/21/21 22:01 Olanzapine (ZyPREXA) 10 mg QHS PO 07/20/21 21:00 07/21/21 10:39 DC 07/20/21 20:10 Olanzapine (ZyPREXA) 20 mg QHS PO 07/21/21 21:00 07/21/21 21:01 Oxymetazoline HCl (Afrin) 2 spray DAILY PRN NA CONGESTION 07/19/21 18:05 Sodium Chloride 1,000 ml @ 150 mls/hr Q6H40M IV 07/19/21 11:15 07/19/21 20:52 DC 07/19/21 11:35 Tizanidine HCl (Zanaflex) 4 mg TID PRN PO MUSCLE SPASMS 07/19/21 18:05 07/20/21 10:47 Vitamin D (Vitamin D) 1,000 units DAILY PO 07/20/21 09:00 07/22/21 09:30 Allergies Coded Allergies: latex (Unverified Allergy, Unknown, 07/06/21) reaction to kiwis ROBBIE ARRIAGA MD Jul 22, 2021 13:38
[2021-07-22 16:19] VITALS: BP 137/81
[2021-07-22] MEDS: GABAPENTIN 100 MG CAP PO SCH (20:14)
[2021-07-22] MEDS: LORATADINE 10 MG TAB PO SCH (20:14)
[2021-07-22] MEDS: DULoxetine 30MG CAPSULE (CYMBALTA) PO SCH (20:14)
[2021-07-22] MEDS: OLANZapine ORAL DISINTEGRATING TAB 5MG PO PRN (20:14)
[2021-07-22] MEDS: OLANZapine 10 MG TAB PO SCH (20:14)
[2021-07-23 06:59] VITALS: BP 121/70
[2021-07-23 07:22] LABS: CHOLESTEROL RISK RATIO 2.75 (<5)
[2021-07-23] MEDS: DULoxetine 30MG CAPSULE (CYMBALTA) PO SCH (09:31)
[2021-07-23] MEDS: VITAMIN D 1,000 INTERNATIONAL UNITS TABLET PO SCH (09:31)
[2021-07-23] MEDS: MELOXICAM (MOBIC) 7.5 MG TAB PO SCH (09:31)
[2021-07-23] MEDS ORDERED: OLAN1TAB20 PO (12:17)
[2021-07-23] MEDS ORDERED: DULO1CAP5 PO (12:17)
--- NOTE | 2021-07-23 14:41 | MHDSPDOC ---
[facility] Discharge Summary Discharge Summary DATE OF ADMISSION: Jul 19, 2021 at 18:04 DATE OF DISCHARGE: Jul 23 DISCHARGE DIAGNOSES: 1. Major depressive disorder with psychotic features 2. Unspecified trauma and stressor related disorder 2. 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 CONSULTANTS INVOLVED: See medical H&P by hospitalist TREATMENT AND PROGRESS ON THE UNIT : [facility] on a 9.39 legal status, she was afforded the following treatment modalities: 1. Individual therapy 2. Group therapy 3. Medication management 4. Milia therapy 5. Safe environment HOSPITAL COURSE: Patient was admitted to the [facility] unit 9.39 legal status. She was medically cleared in the ED before arriving on the unit. Patient attended groups and took medications, finding them beneficial and tolerating them well without side effects. She denies having suicidal ideation since prior to last admission, states she only took 3 pills of trazodone and could have taken other medications if she would really want to harm her self, said she was try to get some sleep. Feeling lonely on weekends, in context of her broad not answering calls, as a trigger for her outbursts, she also has feelings of loneliness and fears abandonment consistent with borderline personality disorder. On the unit she was disrespectful and mean to staff and patients, at times manipulative. Then on interviewing patient she denied any of these behaviors, despite them being reported by multiple staff members. She reports that depression medication can be augmented so her duloxetine was increased to 30 mg twice daily for pain and mood symptoms. After increase in medication he continued to deny any suicidal ideation reported mood was "good". Was seen laughing and joking with other patients on the unit in the social milieu. DISCHARGE ASSESSMENT: Prior to discharge on today's interview, patient is alert and oriented, dressed appropriately in hospital clothing with good hygiene. Smiles laughs has full affect and is engaged in interview. Denies significant depressive or anxiety symptoms. Denies any suicidal or homicidal ideation, planning or intent. Denies and is not observed with ximena, psychotic symptoms of delusions, obsessions, bizarre thinking, paranoia, hallucinations, ruminations, illogical thoughts, flight of ideas, or having poor insight or judgment. Patient has normal mentation, declines further hospitalization on voluntary status and meets criteria for discharge today. Patient was encouraged to return to hospital symptoms worsen or change encouraged to call the unit if she needs to speak to a provider for questions regarding medications or care. MENTAL STATUS EXAMINATION ON DISCHARGE: Patient is a 21-year old -Macanese female, who is in no acute distress, tall wearing a headband sitting on bed with crutches next to bed, improved eye contact. Speech: Is non-spontaneous, minimal. Language skills are intact. Thought processes including: Linear, logical. Thought content: Denies psychiatric symptoms Abstract reasoning, and computation: Intact. Description of associations: Intact. Description of abnormal or psychotic thoughts: Denies, but has some paranoia regarding against her. Judgment: Poor. Insight: Poor. Orientation: X3. Recent and remote memory: Intact. Attention span and concentration: Fair. Language: Telugu. Fund of knowledge: Average. Mood: "good". Affect: less irritable, bored, more conversational, mood con gruent. MEDICATIONS ON DISCHARGE: See medication reconciliation PLAN/FOLLOWUP ARRANGEMENTS: * Mental Health Appt 1 * Additional information BEHAVIORAL HEALTH CL/DRUM1 HARJEET AGUIAR [id number]@0900 FTR/60 PENDING BEH[facility] CL/DRUM1 JAIRO BOOTH [id number]@1400 FTR/60 PENDING BEHAVIORAL HEALTH CL/DRUM1 JAIRO BOOTH [id number]@1400 FTR/60 PENDING BEH[facility]IORAL HEALTH CL/DRUM1 JAIRO BOOTH [id number]@0900 FTR/60 PENDING BEHAVIORAL HEALTH CL/DRUM1 STANLEY MORRIS [id number]@0900 SPEC/90 PENDING BEHAVIORAL HEALTH CL/DRUM1 JAIRO BOOTH [id number]@1400 FTR/60 PENDING BEHAVIORAL HEALTH CL/DRUM1 JAIRO BOOTH [id number]@1400 FTR/60 PENDING CSSRS on discharge: Wish to be : no Nonspecific active suicidal thoughts: No Lifetime attempts: 1x prior to last admission Interrupted attempts: 0 aborted attempts: 0 preparatory axillar behavior: None Taking the consideration safety state, status, modifiable non-modifiable risk factors patient is at low risk for suicide on discharge according to the [place] suicide evaluation. The amount of time spent in the coordination of care for this patient was approximately 35 minutes. ETOH/Disorder Med Rx ETOH/DRUG DISORDER RX: Offrd @ d/c & pt refused Vital Signs/I&Os Vital Signs Date Time Temp Pulse Resp B/P (MAP) Pulse Ox O2 Delivery O2 Flow Rate FiO2 07/23/21 06:59 98.1 80 16 121/70 (87) 98 Room Air Laboratory Data Labs 24H Laboratory Tests 2 07/23/21 06:33: Triglycerides Level 42, Total Cholesterol 132, LDL Cholesterol 76, Non-HDL Cholesterol (LDL + VLDL) 84, Total HDL Cholesterol 48, Cholesterol/HDL Ratio 2.750 Medications Scheduled Cholecalciferol (Vitamin D3) (Vitamin D3) 1,000 Unit Tablet, 1,000 UNITS PO DAILY, (Reported) Duloxetine Hcl (Duloxetine HCl) 30 Mg Capsule.dr, 30 MG PO BID for depression, #14 Gabapentin (Gabapentin) 100 Mg Capsule, 100 MG PO QHS, (Reported) Loratadine (Loratadine) 10 Mg Tablet, 10 MG PO QHS, (Reported) Meloxicam (Meloxicam) 15 Mg Tablet, 15 MG PO DAILY, (Reported) Olanzapine (Olanzapine) 10 Mg Tablet, 20 MG PO QHS for psychosis, #7 Scheduled PRN Hydroxyzine HCl (Hydroxyzine HCl) 25 Mg Tablet, 25 MG PO BID PRN for ANXIETY, (Reported) Oxymetazoline HCl (Afrin) 15 Ml [place], 2 SPRAY NARES DAILY PRN for CONGESTION, (Reported) Pseudoephedrine HCl (Pseudoephedrine HCl) 30 Mg Tablet, 30 MG PO Q6H PRN for CONGESTION, (Reported) Tizanidine HCl (Tizanidine HCl) 4 Mg Capsule, 4 MG PO TID PRN for MUSCLE SPASMS, (Reported) Miscellaneous Medications [Comments] , (Reported) NEED TO VERIFY WITH TORRES Allergies Coded Allergies: latex (Unverified Allergy, Unknown, 07/06/21) reaction to ROBBIE Bello MD Jul 23, 2021 14:41
== END 2021-07-23 15:00 | disposition home or self-care (01) | DRG 885 ==
LOC: EDBD 11:06 → M ED 11:06 → M ED INP 18:04 → M PSY 20:04
PROVIDERS: ADMIT Psychiatry & Neurology Child & Adolescent Psychiatry; ATTEND Student in an Organized Health Care Education/Training Program
DX: F32.3 Major depressive disorder, single episode, severe with psychotic features (principal); R45.851 Suicidal ideations; F43.9 Reaction to severe stress, unspecified; F60.3 Borderline personality disorder; F60.2 Antisocial personality disorder; Z91.82 Personal history of military deployment; Z56.2 Threat of job loss; Z56.5 Uncongenial work environment; Z56.89 Other problems related to employment; Z63.8 Other specified problems related to primary support group; Z91.5 Personal history of self-harm; Z79.899 Other long term (current) drug therapy; Z91.040 Latex allergy status; Z20.822 Contact with and (suspected) exposure to COVID-19; M25.552 Pain in left hip